=== PATIENT | male | born 1975 | race Caucasian/White ===

== ENCOUNTER 2017-12-27 17:24 | Outpatient (CLI) | payer OTHER ==
[2017-12-27] MEDS ORDERED: GADOBUTROL 10 MMOL/10 ML VIAL ONE (17:43)
[2017-12-27] MEDS ORDERED: GADOBUTROL 10 MMOL/10 ML VIAL IVP ONE (18:16)
--- NOTE | 2017-12-28 14:51 | MRI Report ---
Reason: LOW BACK PAIN Procedure Date: 12/27/2017 Accession Number: [id number] / [id number] Procedure: MRI - Lumbar Spine W/WO CPT Code: FULL RESULT: EXAM: MRI LUMBAR SPINE WITHOUT AND WITH CONTRAST EXAM DATE: 12/27/2017 06:27 PM. CLINICAL HISTORY: Low back pain. Possible infection. COMPARISONS: None. TECHNIQUE: Multiplanar, multisequence T1-weighted and fluid-sensitive sequences of the lumbar spine from T12 to S1 before and after administration of intravenous contrast. Other: None. IV contrast: 10 mL Gadavist. FINDINGS: Neurologic Structures: The conus terminates at L1. The conus medullaris and cauda equina are unremarkable. Alignment: No scoliosis or spondylolisthesis. Bone Marrow: Five [id number] lumbar vertebral bodies are assumed. No fractures. The patient has had an anterior and posterior fusion procedure at L5-S1 with paired posterior rods, bilateral pedicle screws, and intervertebral disk spacer. Disk Levels/Facets: T9-T10: Unremarkable. T10-T11: Anterior endplate spurring is present. T11-T12: Unremarkable. T12-L1: Unremarkable. L1-L2: Anterior endplate spurring is present. Mild disk height loss is present. A mild posterior disk protrusion causes mild spinal canal narrowing. L2-L3: The disk is desiccated with anterior endplate spurring. A mild posterior disk protrusion causes minimal spinal canal and bilateral foraminal narrowing. L3-L4: Foraminal area protrusions cause mild bilateral foraminal narrowing. L4-L5: The disk is desiccated. A mild posterior disk protrusion and mild bilateral facet hypertrophy cause minimal spinal canal and moderate bilateral foraminal narrowing. L5-S1: Unremarkable. Spinal Canal: No enhancing masses within the spinal canal. No epidural abscess. Musculature: Normal. No edema, abnormal enhancement, or fatty atrophy. Other: The visualized retroperitoneum is unremarkable. IMPRESSION: 1. Fusion procedure at L5-S1. 2. Mild spinal canal narrowing at L1-L2 due to disk protrusion. 3. Mild bilateral foraminal narrowing at L3-L4 due to protrusions. 4. Moderate bilateral foraminal narrowing at L4-L5 due to disk and posterior element degenerative changes. Comment: The following findings are so common in adults without low back pain that while we report their presence, they must be interpreted with caution and in the context of the clinical situation. (Reference Viktor et al, Spine 2001) Prevalence of findings in patients without low back pain: Disk degeneration (any evidence): 92% Disk desiccation/T2 signal loss: 83% Disk height loss: 56% Disk bulge: 64% Disk protrusion: 32% Annular tear/high intensity zone: 38% RADIA
== END 2017-12-27 17:25 | disposition home or self-care (01) ==
LOC: DI 17:24
PROVIDERS: ATTEND General Practice
DX: M51.26 Other intervertebral disc displacement, lumbar region (principal); M51.36 Other intervertebral disc degeneration, lumbar region; M48.061 Spinal stenosis, lumbar region without neurogenic claudication; M47.9 Spondylosis, unspecified; Z98.1 Arthrodesis status
CPT/HCPCS: 72158; A9585

== ENCOUNTER 2018-01-12 13:13 | Emergency (ER) | payer OTHER ==
[2018-01-12] MEDS ORDERED: DEXAMETHASONE 10 MG/ML VIAL PO STA (14:15)
--- NOTE | 2018-01-12 14:18 | ED Physician Documentation ---
PD HPI BACK PAIN - Stated complaint Stated Complaint: BACK PX - Chief complaint Chief Complaint: Back Pain - History obtained from History obtained from: Patient - History of Present Illness Timing - onset: How many months ago (2) Timing - duration: Months (2) Timing - details: Abrupt onset, Still present, Waxing and waning Location: Lower, Right Quality: Pain, Spasm, Sharp, Similar to prior episodes Associated symptoms: No: Fever, Weakness, Numbness, Incontinent of urine, Unable to urinate, Hematuria, Incontinent of stool Improves with: Rest, Ice, Position, Meds Worsened by: Movement, Lifting Contributing factors: Lifting, Twisting Similar symptoms before: Diagnosis (lumbar disc disease) Recently seen: Clinic - Additional information Additional information: 42-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 Since that time he has had continued pain. He has not had much relief of his pain with any of the modalities is used he has been on a course of prednisone. He has a referral to orthospine and had an MRI done 2 weeks ago Review of Systems Constitutional: denies: Fever, Chills Eyes: denies: Decreased vision Ears: denies: Ear pain Nose: denies: Congestion Throat: denies: Sore throat Cardiac: denies: Chest pain / pressure, Palpitations Respiratory: denies: Dyspnea, Cough GI: denies: Abdominal Pain, Nausea, Vomiting : denies: Dysuria, Frequency Skin: denies: Rash, Lesions Musculoskeletal: reports: Back pain. denies: Neck pain Neurologic: denies: Generalized weakness, Focal weakness, Numbness PD PAST MEDICAL HISTORY - Past Medical History Past Medical History: Yes Cardiovascular: Hypertension Musculoskeletal: Chronic back pain - Past Surgical History Past Surgical History: Yes HEENT: Other - Present Medications Home Medications: Ambulatory Orders Medication Instructions Recorded Confirmed Cyclobenzaprine [Flexeril] 10 mg PO TID PRN #20 tablet 01/12/18 Hydrocodone/Acetaminophen 1 - 2 each PO Q6H PRN #14 tablet 01/12/18 [Hydrocodon-Acetaminophen 5-325] Losartan/Hydrochlorothiazide 1 ea 01/12/18 [Hyzaar 50-12.5 Tablet] - Allergies Allergies/Adverse Reactions: Allergies Allergy/AdvReac Type Severity Reaction Status Date / Time No Known Drug Allergies Allergy Verified 01/12/18 13:21 - Social History Does the pt smoke?: No Smoking Status: Never smoker Does the pt drink ETOH?: No Does the pt have substance abuse?: No - Immunizations Immunizations are current?: Yes PD ED PE NORMAL - Vitals Vital signs reviewed: Yes (hypertensive ) - General General: Alert and oriented X 3, No acute distress, Well developed/nourished - HEENT HEENT: Atraumatic, PERRL, EOMI - Neck Neck: Supple, no meningeal sign - Respiratory Respiratory: No respiratory distress - Back Back: No CVA TTP, No spinal TTP, Other (There is tenderness to the paraspinous muscles on the upper L spine area especially on the right and no flank tenderness ) - Derm Derm: Normal color, Warm and dry, No rash - Extremities Extremities: No deformity, No edema - Neuro Neuro: Alert and oriented X 3, 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, No motor deficit, No sensory deficit, Normal speech Eye Opening: Spontaneous Motor: Obeys Commands Verbal: Oriented GCS Score: 15 - Psych Psych: Normal mood, Normal affect Results - Vitals Vitals: Vital Signs - 24 hr 01/12/18 13:19 Temperature 36.4 C L Heart Rate 80 Respiratory 18 Rate Blood Pressure 151/109 H O2 Saturation 99 Oxygen O2 Source Room air PD MEDICAL DECISION MAKING - ED course Complexity details: considered differential, d/w patient ED course: 42-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 He is administered dexamethasone 10 mg orally and we will place him on some Flexeril and hydrocodone. He does have follow-up with orthospine. Departure - Departure Disposition: 01 Home, Self Care Clinical Impression: Lumbar strain Qualifiers: Encounter type: initial encounter Qualified Code(s): S39.012A - Strain of muscle, fascia and tendon of lower back, initial encounter Condition: Stable Instructions: ED Low Back Pain Injury Follow-Up: ARNALDO ALLEN III, MD [Primary Care Provider] - Prescriptions: Cyclobenzaprine [Flexeril] 10 mg PO TID PRN #20 tablet PRN Reason: Spasms Hydrocodone/Acetaminophen [Hydrocodon-Acetaminophen 5-325] 1 - 2 each PO Q6H PRN #14 tablet PRN Reason: pain
[2018-01-12 14:27] VITALS: BP 148/98
== END 2018-01-12 14:25 | disposition home or self-care (01) ==
LOC: ED 13:13
DX: S39.012A Strain of muscle, fascia and tendon of lower back, initial encounter (principal); I10 Essential (primary) hypertension
CPT/HCPCS: 99283

== ENCOUNTER 2018-03-09 23:34 | Emergency (ER) | payer OTHER ==
--- NOTE | 2018-03-09 23:56 | ED Physician Documentation ---
PD HPI ALTERED MENTAL STATUS - Stated complaint Stated Complaint: AMS - History obtained from History obtained from: Patient, Family, EMS - History of Present Illness Timing - onset: Today Timing - details: Gradual onset Quality / character: Confused Associated symptoms: No: Fever, Headache, Stiff neck, Dyspnea, Cough, NVD, Urinary sx, General weakness, Focal weakness, Seizure activity, Syncope Contributing factors: New medication Basline status: Alert and oriented X 3, Ambulatory, Independent Treatment SONG PLUGGER: Accucheck (107) Similar symptoms before: Has not had sx before Recently seen: Clinic - Additional information Additional information: BIBA. says patient has been confused all day, much worse this morning. he had been on duloxetine for the past several weeks and was at a maximum dose, was at PMD earlier today and was changed to wellbutrin: took last dose of duloxetine in the morning and first dose of wellbutrin this afternoon. says he was drowsy during the appointment, and she even gave him narcan this evening with no response: she did this because of increased confusion, and he takes oxycodone on a daily basis for chronic pain. he has exhibited twitching for the past several days, worse tonight. medics say that patient has been awake, alert, oriented, but also makes odd statements (something about a squirrel in the ambulance), and on arrival, patient tells me he is here because I dont know, I guess there was some sort of accident. says she controls his pain medication dosing and thus she does not see realistic chance that he took more than as prescribed. Review of Systems Constitutional: reports: Reviewed and negative Eyes: reports: Reviewed and negative Ears: reports: Reviewed and negative Cardiac: reports: Reviewed and negative Respiratory: reports: Reviewed and negative GI: reports: Reviewed and negative : denies: Dysuria, Frequency Neurologic: reports: Confused. denies: Headache PD PAST MEDICAL HISTORY - Past Medical History Cardiovascular: Hypertension Musculoskeletal: Chronic back pain - Past Surgical History Past Surgical History: Yes HEENT: Other - Present Medications Home Medications: Ambulatory Orders Medication Instructions Recorded Confirmed Losartan/Hydrochlorothiazide 50 ea PO DAILY 01/12/18 03/10/18 [Hyzaar 50-12.5 Tablet] Duloxetine HCl [Cymbalta] 60 mg PO BID 03/10/18 03/10/18 LORazepam [Lorazepam] 0.5 - 1 mg PO TID PRN #14 tablet 03/10/18 Oxycodone HCl [Roxicodone] 15 mg PO PRN PRN 03/10/18 03/10/18 Rosuvastatin Calcium [Crestor] 20 mg PO DAILY PM 03/10/18 03/10/18 Tamsulosin HCl [Flomax] 0.4 mg PO BID 03/10/18 03/10/18 amLODIPine [Norvasc] 5 mg PO DAILY PM 03/10/18 03/10/18 buPROPion [Wellbutrin Sr] 150 mg PO DAILY PM 03/10/18 03/10/18 - Allergies Allergies/Adverse Reactions: Allergies Allergy/AdvReac Type Severity Reaction Status Date / Time No Known Drug Allergies Allergy Verified 03/10/18 02:21 - Social History Does the pt smoke?: No Smoking Status: Never smoker Does the pt drink ETOH?: No Does the pt have substance abuse?: No - Immunizations Immunizations are current?: Yes PD ED PE NORMAL - Vitals Vital signs reviewed: Yes - General General: Alert and oriented X 3, No acute distress, Well developed/nourished - HEENT HEENT: PERRL, EOMI, Moist mucous membranes - Neck Neck: Supple, no meningeal sign - Cardiac Cardiac: RRR, No murmur - Respiratory Respiratory: No respiratory distress, Clear bilaterally - Abdomen Abdomen: Soft, Non tender - Derm Derm: Normal color, Warm and dry, No rash - Extremities Extremities: No edema - Neuro Neuro: Alert and oriented X 3, 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 he exhibits occasional, brief twitching movements in arms and legs, but not coordinated, rhythmic, nor sustained) Eye Opening: Spontaneous Motor: Obeys Commands Verbal: Oriented GCS Score: 15 Results - Vitals Vitals: Vital Signs - 24 hr 03/09/18 03/09/18 03/10/18 23:36 23:57 00:48 Temperature 36.9 C Heart Rate 95 100 98 Respiratory 18 18 18 Rate Blood Pressure 142/92 H 142/92 H 127/83 H O2 Saturation 96 92 99 03/10/18 03/10/18 03/10/18 01:29 02:06 02:57 Temperature 36.7 C Heart Rate 93 88 106 H Respiratory 19 18 19 Rate Blood Pressure 135/89 H 133/81 H 122/83 H O2 Saturation 95 94 98 Oxygen O2 Source Room air - Labs Labs: Laboratory Tests 03/10/18 03/10/18 03/10/18 00:42 01:30 01:30 WBC 6.4 RBC 4.10 L Hgb 12.5 L Hct 36.4 L MCV 89.0 MCH 30.5 MCHC 34.3 RDW 13.6 Plt Count 303 MPV 6.2 L Neut # (Auto) 4.3 Lymph # (Auto) 1.2 L Kingfisher # (Auto) 0.7 Eos # (Auto) 0.2 Baso # (Auto) 0.1 Absolute Nucleated RBC 0.00 Nucleated RBC % 0.1 Sodium 138 Potassium 3.6 Chloride 101 Carbon Dioxide 28 Anion Gap 9.0 BUN 17 Creatinine 0.7 Estimated GFR (MDRD) 124 Glucose 136 H Calcium 9.2 Total Bilirubin 0.5 AST 54 H ALT 74 H Alkaline Phosphatase 50 Total Protein 6.7 Albumin 3.8 Globulin 2.9 Albumin/Globulin Ratio 1.3 Lipase 64 H Urine Color YELLOW Urine Clarity CLEAR Urine pH 8.0 H Ur Specific [place] 1.015 Urine Protein NEGATIVE Urine Glucose (UA) NEGATIVE Urine Ketones NEGATIVE Urine Occult Blood NEGATIVE Urine Nitrite NEGATIVE Urine Bilirubin NEGATIVE Urine Urobilinogen 0.2 (NORMAL) Ur Leukocyte Esterase NEGATIVE Ur Microscopic Review NOT INDICATED Urine Culture Comments NOT INDICATED Urine Opiates Screen NEGATIVE Ur Oxycodone Screen POSITIVE H Urine Methadone Screen NEGATIVE Ur Propoxyphene Screen NEGATIVE Ur Barbiturates Screen NEGATIVE Ur Tricyclics Screen NEGATIVE Ur Phencyclidine Scrn NEGATIVE Ur Amphetamine Screen NEGATIVE U Methamphetamines Scrn NEGATIVE U Benzodiazepines Scrn NEGATIVE Urine Cocaine Screen NEGATIVE U Cannabinoids Screen NEGATIVE - Rads (name of study) CT head Radiology: Prelim report reviewed, See rad report PD MEDICAL DECISION MAKING - ED course Complexity details: reviewed results, re-evaluated patient, considered differential, d/w patient, d/w family ED course: unclear etiology for these symptoms, and test results are reassuring. His symptoms gradually improved during ED stay and he was appropriate for discharge home, and patient are comfortable with this plan. He has several elements of serotonin syndrome, which could be explained by the escalating doses of duloxetine and the immediate transition to wellbutrin earlier today (coinciding with worsening of symptoms), but he does not have any autonomic instability, muscle rigidity, nor significant delirium or any fever, and thus can still be treated in outpatient setting at this time. given lorazepam for mild twitching and instructed to stop the wellbutrin and duloxetine and f/u with PMD immediately for reevaluation Departure - Departure Disposition: 01 Home, Self Care Clinical Impression: Altered mental status Condition: Good Instructions: ED Altered Loc, ED Confusion Follow-Up: ЕЛЕНА JUSTIN DO [Primary Care Provider] - (Call to arrange for next available appointment) Prescriptions: LORazepam [Lorazepam] 0.5 - 1 mg PO TID PRN #14 tablet PRN Reason: Agitation Comments: As we discussed, serotonin syndrome could be a possible explanation for these sy mptoms. I recommend discontinuing the wellbutrin until and unless directed by your primary care provider. Contact your primary care provider this morning to arrange for immediate follow-up, and return to the emergency department if worse in any way. Discharge Date/Time: 03/10/18 03:07
[2018-03-10 00:51] LABS: BILIRUBIN,URINE NEGATIVE (NEGATIVE); GLUCOSE, URINE (UA) NEGATIVE (NEGATIVE); KETONES,URINE (UA) NEGATIVE (NEGATIVE); LEUKOCYTE ESTERASE, URINE NEGATIVE (NEGATIVE); MUDS CUTOFF CONCENTRATIONS CUTOFF CONC BELOW:; NITRITE,URINE NEGATIVE (NEGATIVE); OCCULT BLOOD,URINE NEGATIVE (NEGATIVE); PROTEIN,URINE NEGATIVE (NEGATIVE); UROBILINOGEN,URINE 0.2 (NORMAL) E.U./dL (NORMAL)
[2018-03-10 00:56] LABS: CLARITY,URINE CLEAR (CLEAR)
[2018-03-10 01:00] LABS: AMPHETAMINE SCREEN,URINE NEGATIVE (NEGATIVE); BENZODIAZEPINES SCREEN, URINE NEGATIVE (NEGATIVE); COCAINE SCREEN URINE NEGATIVE (NEGATIVE); METHADONE SCREEN, URINE NEGATIVE (NEGATIVE); METHAMPHETAMINES SCREEN, URINE NEGATIVE (NEGATIVE); OPIATE SCREEN, URINE NEGATIVE (NEGATIVE); OXYCODONE SCREEN, URINE POSITIVE (NEGATIVE); PROPOXYPHENE SCREEN, URINE NEGATIVE (NEGATIVE); TRICYCLIC ANTIDEPRESSANT,URINE NEGATIVE (NEGATIVE)
[2018-03-10 01:42] LABS: BASOPHILS # (AUTO) 0.1 10^3/uL (0.0-0.1); BASOPHILS % (AUTO) 0.9 %; EOSINOPHILS # (AUTO) 0.2 10^3/uL (0.0-0.7); EOSINOPHILS % (AUTO) 3.7 %; HGB - HEMOGLOBIN 12.5 g/dL (14.0-18.0); LYMPHOCYTES # (AUTO) 1.2 10^3/uL (1.5-3.5); LYMPHOCYTES % (AUTO) 18.2 %; MEAN CORPUSCULAR HEMOGLOBIN 30.5 pg (27.0-31.0); MEAN CORPUSCULAR HGB CONC 34.3 g/dL (32.0-36.0); MEAN PLATELET VOLUME 6.2 fL (7.4-11.4); MONOCYTES # (AUTO) 0.7 10^3/uL (0.0-1.0); MONOCYTES % (AUTO) 10.4 %; NEUTROPHILS # (AUTO) 4.3 10^3/uL (1.5-6.6); NEUTROPHILS % (AUTO) 66.8 %; PLT - PLATELET COUNT 303 10^3/uL (130-450); RED CELL DISTRIBUTION WIDTH 13.6 % (12.0-15.0); WHITE BLOOD COUNT 6.4 x10^3/uL (4.8-10.8)
--- NOTE | 2018-03-10 01:50 | CT Report ---
Reason: AMS Procedure Date: 03/10/2018 Accession Number: [id number] / [id number] Procedure: CT - Head W/O CPT Code: FULL RESULT: EXAM: CT HEAD EXAM DATE: 03/10/2018 01:22 AM. CLINICAL HISTORY: Altered mental status. COMPARISON: None. TECHNIQUE: Multiaxial CT images were obtained from the foramen magnum to the vertex. Reformats: Sagittal and coronal. IV contrast: None. In accordance with CT protocol optimization, one or more of the following dose reduction techniques were utilized for this exam: automated exposure control, adjustment of mA and/or KV based on patient size, or use of iterative reconstructive technique. FINDINGS: Parenchyma: No intraparenchymal hemorrhage. No evidence of mass, midline shift, or CT findings of infarction. White-white differentiation is distinct. Extraaxial Spaces: Normal for age. No subdural or epidural collections identified. Ventricles: The ventricles are asymmetric in size with the right being larger than the left, likely representing a normal variant for this patient. Sinuses and Orbits: The bilateral hypoplastic maxillary sinuses are completely opacified. The orbits and mastoid sinuses are unremarkable. Bones: No evidence of fracture or calvarial defect. IMPRESSION: No acute intracranial process. RADIA
[2018-03-10 01:51] LABS: ALBUMIN 3.8 g/dL (3.2-5.5); ALBUMIN/GLOBULIN RATIO 1.3 (1.0-2.2); BILIRUBIN,TOTAL 0.5 mg/dL (0.2-1.0); CALCIUM 9.2 mg/dL (8.5-10.3); CREATININE 0.7 mg/dL (0.6-1.2); TOTAL PROTEIN 6.7 g/dL (6.7-8.2)
[2018-03-10] MEDS ORDERED: LORazepam 0.5 MG TABLET PO STA (02:48)
[2018-03-10 02:57] VITALS: BP 122/83
== END 2018-03-10 03:07 | disposition home or self-care (01) ==
LOC: EDUNIT# → ED 23:34
DX: R41.82 Altered mental status, unspecified (principal); R25.3 Fasciculation; I10 Essential (primary) hypertension; G89.29 Other chronic pain
CPT/HCPCS: 36415; 70450; 80053; 80306; 81003; 83690; 85025; 99283; 99285; A9270; 81001; 87086

== ENCOUNTER 2018-03-12 11:28 | Outpatient (CLI) | payer OTHER | END 2018-03-12 11:29 | disposition critical access hospital (66) | LOC: EMS 11:28 | PROVIDERS: ATTEND Surgery | DX: R56.9 Unspecified convulsions (principal) | CPT/HCPCS: A0425; A0427 ==

== ENCOUNTER 2018-03-12 11:45 | Emergency (ER) | payer OTHER ==
[2018-03-12] MEDS ORDERED: LORazepam 2 MG/ML VIAL ONE ×2 (11:48→12:20)
[2018-03-12] MEDS ORDERED: ETOMIDATE 40 MG/20 ML VIAL IVP ONE (11:53)
[2018-03-12] MEDS ORDERED: SUCCINYLCHOLINE 200 MG/10 ML VIAL ONE (11:53)
[2018-03-12] MEDS ORDERED: VECURONIUM 10 MG VIAL IVP STA (12:00)
[2018-03-12] MEDS ORDERED: WATER FOR INJECTION,STERILE 10 ML ONE (12:06)
--- NOTE | 2018-03-12 12:07 | ED Physician Documentation ---
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 42 male pmhx HTN chronic back pain meds hyzaar, ativan, oxycodone, crestor, flomax, norvasc recently started cymbalta and then wellbutrin seen 03/09/17 for AMS and twitching - had labs and CT all neg - dx possible serotonin syndrome due to sx starting after dec cymbalta dose then switching to welbutrin, those meds were dced and he was prescribed ativan this AM found him on the floor beside his bed seizing she gave narcan s change EMS called - FSBS 97, gave versed 5 s resolution, pt has been seizing for upwards of 45 min on arrival states no EtOH and no depression / suicidal tendencies states no recent c/o MEDEIROS neck stiffness or fever Review of Systems Unable to obtain: Unresponsive PD PAST MEDICAL HISTORY - Past Medical History Past Medical History: Yes Cardiovascular: Hypertension Musculoskeletal: Chronic back pain - Past Surgical History Past Surgical History: Yes HEENT: Other - Present Medications Home Medications: Ambulatory Orders Medication Instructions Recorded Confirmed Losartan/Hydrochlorothiazide 50 ea PO DAILY 01/12/18 03/12/18 [Hyzaar 50-12.5 Tablet] LORazepam [Lorazepam] 0.5 - 1 mg PO TID PRN #14 tablet 03/10/18 03/12/18 Oxycodone HCl [Roxicodone] 15 mg PO PRN PRN 03/10/18 03/12/18 Rosuvastatin Calcium [Crestor] 20 mg PO DAILY PM 03/10/18 03/12/18 Tamsulosin HCl [Flomax] 0.4 mg PO BID 03/10/18 03/12/18 amLODIPine [Norvasc] 10 mg PO DAILY PM 03/10/18 03/12/18 buPROPion [Wellbutrin Sr] 150 mg PO DAILY PM 03/10/18 03/12/18 - Allergies Allergies/Adverse Reactions: Allergies Allergy/AdvReac Type Severity Reaction Status Date / Time No Known Drug Allergies Allergy Verified 03/10/18 02:21 - Social History Does the pt smoke?: No Smoking Status: Never smoker Does the pt drink ETOH?: No Does the pt have substance abuse?: No - Immunizations Immunizations are current?: Yes PD ED PE NORMAL - Vitals Vital signs reviewed: Yes (tachy) - General General: Other (in status unresponsive not mainitaing airway) - HEENT HEENT: No: PERRL (L 7 R 5) - Neck Neck: No bony TTP (he is unrepsonsive - will image as he was found down) - Cardiac Cardiac: RRR (tachy) - Respiratory Respiratory: Other (grunting resp) - Abdomen Abdomen: Non tender - Derm Derm: Normal color - Extremities Extremities: No deformity - Neuro Neuro: Other (in status with antonio tonic motor activity, ? some decorticate postu ring) Results - Vitals Vitals: Vital Signs - 24 hr 03/12/18 03/12/18 03/12/18 11:50 12:10 12:43 Temperature 36.5 C Heart Rate 121 H 117 H 111 H Respiratory 21 14 14 Rate Blood Pressure 179/101 H 152/90 H O2 Saturation 99 92 100 03/12/18 03/12/18 03/12/18 12:50 13:09 13:25 Temperature 36.4 C L Heart Rate 107 H 105 H 106 H Respiratory 24 16 Rate Blood Pressure 147/90 H 150/88 H O2 Saturation 98 98 03/12/18 03/12/18 03/12/18 13:31 13:37 13:45 Temperature Heart Rate 106 H 107 H 106 H Respiratory 20 18 14 Rate Blood Pressure 146/92 H 146/80 H 149/94 H O2 Saturation 99 98 98 03/12/18 03/12/18 03/12/18 13:52 13:57 14:20 Temperature Heart Rate 104 H 102 H 98 Respiratory 14 15 14 Rate Blood Pressure 130/79 128/75 116/82 H O2 Saturation 99 99 100 03/12/18 03/12/18 03/12/18 14:27 14:35 14:47 Temperature Heart Rate 99 94 97 Respiratory 16 14 14 Rate Blood Pressure 112/72 114/80 101/67 O2 Saturation 100 100 100 03/12/18 03/12/18 03/12/18 14:52 14:55 15:03 Temperature Heart Rate 93 92 Respiratory 14 14 Rate Blood Pressure 97/64 97/65 93/64 O2 Saturation 100 100 03/12/18 15:08 Temperature Heart Rate Respiratory Rate Blood Pressure 101/73 O2 Saturation Oxygen O2 Source Mechanical ventilator - EKG (time done) 1154 Rate: Rate (enter#) ([id number]) Rhythm: Sinus tachycardia [place]: Normal Intervals: Prolonged QT Ischemia: Non specific changes - Labs Labs: Laboratory Tests 03/12/18 03/12/18 03/12/18 11:51 11:51 11:51 WBC 7.8 RBC 4.56 L Hgb 13.9 L Hct 39.5 L MCV 86.6 MCH 30.4 MCHC 35.1 RDW 13.3 Plt Count 347 MPV 6.0 L Neut # (Auto) 3.7 Lymph # (Auto) 2.7 [place]cl[place] # (Auto) 0.9 Eos # (Auto) 0.4 Baso # (Auto) 0.1 Absolute Nucleated RBC 0.00 Nucleated RBC % 0.0 Bld Gas Analysis Time Sample Site ABG pH ABG pCO2 ABG pO2 ABG HCO3 ABG Total CO2 ABG O2 Saturation ABG Base Excess [place] Test Respiration Rate O2 Delivery Device Vent Mode FiO2 Tidal Volume PEEP Pressure Support Vent Sodium 137 Potassium 3.0 L Chloride 99 L Carbon Dioxide 27 Anion Gap 11.0 BUN 14 Creatinine 0.8 Estimated GFR (MDRD) 107 Glucose 110 H Calcium 8.8 Total Bilirubin 0.9 AST 46 H ALT 69 H Alkaline Phosphatase 48 Total Creatine Kinase Troponin I < 0.04 Total Protein 7.2 Albumin 4.1 Globulin 3.1 Albumin/Globulin Ratio 1.3 Lipase 24 TSH Urine Color Urine Clarity Urine pH Ur Specific [place] Urine Protein Urine Glucose (UA) Urine Ketones Urine Occult Blood Urine Nitrite Urine Bilirubin Urine Urobilinogen Ur Leukocyte Esterase Ur Microscopic Review Urine Culture Comments Salicylates < 6.0 Urine Opiates Screen Ur Oxycodone Screen Urine Methadone Screen Ur Propoxyphene Screen Acetaminophen < 10 L Ur Barbiturates Screen Ur Tricyclics Screen Ur Phencyclidine Scrn Ur Amphetamine Screen U Methamphetamines Scrn U Benzodiazepines Scrn Urine Cocaine Screen U Cannabinoids Screen Ethyl Alcohol < 5.0 03/12/18 03/12/18 03/12/18 11:51 11:51 12:20 WBC RBC Hgb Hct MCV MCH MCHC RDW Plt Count MPV Neut # (Auto) Lymph # (Auto) Mclennan # (Auto) Eos # (Auto) Baso # (Auto) Absolute Nucleated RBC Nucleated RBC % Bld Gas Analysis Time Sample Site ABG pH ABG pCO2 ABG pO2 ABG HCO3 ABG Total CO2 ABG O2 Saturation ABG Base Excess [place] Test Respiration Rate O2 Delivery Device Vent Mode FiO2 Tidal Volume PEEP Pressure Support Vent Sodium Potassium Chloride Carbon Dioxide Anion Gap BUN Creatinine Estimated GFR (MDRD) Glucose Calcium Total Bilirubin AST ALT Alkaline Phosphatase Total Creatine Kinase 170 Troponin I Total Protein Albumin Globulin Albumin/Globulin Ratio Lipase TSH 1.57 Urine Color YELLOW Urine Clarity CLEAR Urine pH 6.0 Ur Specific [place] 1.020 Urine Protein NEGATIVE Urine Glucose (UA) NEGATIVE Urine Ketones NEGATIVE Urine Occult Blood NEGATIVE Urine Nitrite NEGATIVE Urine Bilirubin NEGATIVE Urine Urobilinogen 0.2 (NORMAL) Ur Leukocyte Esterase NEGATIVE Ur Microscopic Review NOT INDICATED Urine Culture Comments NOT INDICATED Salicylates Urine Opiates Screen NEGATIVE Ur Oxycodone Screen POSITIVE H Urine Methadone Screen NEGATIVE Ur Propoxyphene Screen NEGATIVE Acetaminophen Ur Barbiturates Screen NEGATIVE Ur Tricyclics Screen NEGATIVE Ur Phencyclidine Scrn NEGATIVE Ur Amphetamine Screen NEGATIVE U Methamphetamines Scrn NEGATIVE U Benzodiazepines Scrn POSITIVE H Urine Cocaine Screen NEGATIVE U Cannabinoids Screen NEGATIVE Ethyl Alcohol 03/12/18 12:43 WBC RBC Hgb Hct MCV MCH MCHC RDW Plt Count MPV Neut # (Auto) Lymph # (Auto) [place]cl[place]an # (Auto) Eos # (Auto) Baso # (Auto) Absolute Nucleated RBC Nucleated RBC % Bld Gas Analysis Time 1243 Sample Site RIGHT RADIAL ABG pH 7.42 ABG pCO2 40 ABG pO2 129 H ABG HCO3 25.1 ABG Total CO2 26.3 ABG O2 Saturation 98 ABG Base Excess 0.7 [place] Test POSITIVE Respiration Rate 14 O2 Delivery Device VENTILATOR Vent Mode SIMV FiO2 100.00 Tidal Volume 600 PEEP 5 Pressure Support Vent 10 Sodium Potassium Chloride Carbon Dioxide Anion Gap BUN Creatinine Estimated GFR (MDRD) Glucose Calcium Total Bilirubin AST ALT Alkaline Phosphatase Total Creatine Kinase Troponin I Total Protein Albumin Globulin Albumin/Globulin Ratio Lipase TSH Urine Color Urine Clarity Urine pH Ur Specific [place] Urine Protein Urine Glucose (UA) Urine Ketones Urine Occult Blood Urine Nitrite Urine Bilirubin Urine Urobilinogen Ur Leukocyte Esterase Ur Microscopic Review Urine Culture Comments Salicylates Urine Opiates Screen Ur Oxycodone Screen Urine Methadone Screen Ur Propoxyphene Screen Acetaminophen Ur Barbiturates Screen Ur Tricyclics Screen Ur Phencyclidine Scrn Ur Amphetamine Screen U Methamphetamines Scrn U Benzodiazepines Scrn Urine Cocaine Screen U Cannabinoids Screen Ethyl Alcohol - Rads (name of study) [facility] Radiology: See rad report (verbal from telerad: no sig change from 03/10, asymmetrical ventricles considered to be a normal variant as there is no midline shift, rads feels mass unlikely but consider MRI (not available at [facility] on Tuesday)) [facility] Radiology: See rad report (no acute) CXR Radiology: See rad report (ET 3 cm above elisabeth, NG instomach - no infiltrate per my read - per rad read perhilar an dbbibasilar atelectasis vs aspiration - he had note eaten today and no vomti was noted furing uintubation so suspect atectasis) Procedures - Intubation Provider: Emergency physician Medications: Etomidate, Succinylcholine Blade: Todd (4) Tube: Size-enter number (7.5), Cuffed, Marked at teeth-enter cm (23) Route: Oral Confirmation: Direct visualization, Bilateral breath sounds, No abdominal breath sound, End tidal CO2, Pulse ox, Chest xray Complications: No compications PD MEDICAL DECISION MAKING - ED course ED course: pt arrives 1145 in status epilepticus per EMS has been seizing for 45 min + so will est time of onset 11 AM found down beside his bed FSBS 97 BASTER HAND already been given versed 5mg IV by EMS gave 2 of ativan IV no change pt not protecting airway elected to intubate with RSO etomidate and succ followed by vec to allow pt to get through CT - confirmed with direct vis, ETCO2 sats and CXR placed sanchez and NG as well and loaded [id number] mg/kg IV still seizing started propofol push and gtt still sezing added versed gtt too spoke to [place] neuro at 1315 - he rec speak to neuro critical care - agrees with tx and plan so far implemented spoke to neuro critical care doc Dr Rui Harper and he accept pt and req i also give 1 gram keppra approx 1500 seizure activity finally subsiding and 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
[2018-03-12] MEDS ORDERED: PHENYTOIN IV STA (12:08)
[2018-03-12] MEDS ORDERED: SODIUM CHLORIDE 0.9% IV STA (12:08)
[2018-03-12 12:10] LABS: BASOPHILS # (AUTO) 0.1 10^3/uL (0.0-0.1); EOSINOPHILS # (AUTO) 0.4 10^3/uL (0.0-0.7); HGB - HEMOGLOBIN 13.9 g/dL (14.0-18.0); LYMPHOCYTES # (AUTO) 2.7 10^3/uL (1.5-3.5); LYMPHOCYTES % (AUTO) 34.3 %; MEAN CORPUSCULAR HEMOGLOBIN 30.4 pg (27.0-31.0); MEAN CORPUSCULAR HGB CONC 35.1 g/dL (32.0-36.0); MEAN CORPUSCULAR VOLUME 86.6 fL (80.0-94.0); MONOCYTES # (AUTO) 0.9 10^3/uL (0.0-1.0); MONOCYTES % (AUTO) 11.7 %; NEUTROPHILS # (AUTO) 3.7 10^3/uL (1.5-6.6); PLT - PLATELET COUNT 347 10^3/uL (130-450); RED BLOOD COUNT 4.56 10^6/uL (4.70-6.10); RED CELL DISTRIBUTION WIDTH 13.3 % (12.0-15.0); WHITE BLOOD COUNT 7.8 x10^3/uL (4.8-10.8)
[2018-03-12] MEDS ORDERED: SUCCINYLCHOLINE 200 MG/10 ML VIAL IVP STA (12:17)
[2018-03-12] MEDS ORDERED: ETOMIDATE 40 MG/20 ML VIAL IVP STA (12:17)
[2018-03-12] MEDS ORDERED: LORazepam 2 MG/ML VIAL IVP STA ×2 (12:17→13:12)
[2018-03-12 12:22] LABS: ACETAMINOPHEN < 10 ug/mL (10-30); ALBUMIN 4.1 g/dL (3.2-5.5); ALBUMIN/GLOBULIN RATIO 1.3 (1.0-2.2); ALKALINE PHOSPHATASE 48 IU/L (42-121); ALT ALANINE AMINOTRANSFERASE 69 IU/L (10-60); AST ASPARTATE AMINOTRANSFERASE 46 IU/L (10-42); BILIRUBIN,TOTAL 0.9 mg/dL (0.2-1.0); BUN - BLOOD UREA NITROGEN 14 mg/dL (6-20); CALCIUM 8.8 mg/dL (8.5-10.3); CARBON DIOXIDE - CO2 27 mmol/L (21-32); CHLORIDE 99 mmol/L (101-111); CREATININE 0.8 mg/dL (0.6-1.2); GFR - MDRD 107 (>89); GLUCOSE 110 mg/dL (70-100); LIPASE 24 U/L (22-51); SALICYLATE < 6.0 mg/dL; SODIUM 137 mmol/L (135-145); TOTAL PROTEIN 7.2 g/dL (6.7-8.2)
[2018-03-12] MEDS ORDERED: IOVERSOL 320 100 ML VIAL IVP ONE (12:24)
[2018-03-12 12:27] LABS: MUDS CUTOFF CONCENTRATIONS CUTOFF CONC BELOW:
[2018-03-12 12:31] LABS: BILIRUBIN,URINE NEGATIVE (NEGATIVE); GLUCOSE, URINE (UA) NEGATIVE (NEGATIVE); KETONES,URINE (UA) NEGATIVE (NEGATIVE); LEUKOCYTE ESTERASE, URINE NEGATIVE (NEGATIVE); NITRITE,URINE NEGATIVE (NEGATIVE); OCCULT BLOOD,URINE NEGATIVE (NEGATIVE); PROTEIN,URINE NEGATIVE (NEGATIVE); UROBILINOGEN,URINE 0.2 (NORMAL) E.U./dL (NORMAL)
[2018-03-12 12:32] LABS: CLARITY,URINE CLEAR (CLEAR)
[2018-03-12 12:40] LABS: AMPHETAMINE SCREEN,URINE NEGATIVE (NEGATIVE); BENZODIAZEPINES SCREEN, URINE POSITIVE (NEGATIVE); COCAINE SCREEN URINE NEGATIVE (NEGATIVE); METHAMPHETAMINES SCREEN, URINE NEGATIVE (NEGATIVE); OPIATE SCREEN, URINE NEGATIVE (NEGATIVE)
[2018-03-12 12:41] LABS: METHADONE SCREEN, URINE NEGATIVE (NEGATIVE); OXYCODONE SCREEN, URINE POSITIVE (NEGATIVE); PROPOXYPHENE SCREEN, URINE NEGATIVE (NEGATIVE); TRICYCLIC ANTIDEPRESSANT,URINE NEGATIVE (NEGATIVE)
--- NOTE | 2018-03-12 12:49 | CT Report ---
Reason: seizing with unequal pupils Procedure Date: 03/12/2018 Accession Number: [id number] / [id number] Procedure: CT - Head W/O Stroke Protocol CPT Code: FULL RESULT: EXAM: CT HEAD EXAM DATE: 03/12/2018 12:18 PM. CLINICAL HISTORY: Seizing with unequal pupils. COMPARISON: Head without contrast 03/10/2018 1:06 AM. TECHNIQUE: Multiaxial CT images were obtained from the foramen magnum to the vertex. Reformats: Sagittal and coronal. IV contrast: None. In accordance with CT protocol optimization, one or more of the following dose reduction techniques were utilized for this exam: automated exposure control, adjustment of mA and/or KV based on patient size, or use of iterative reconstructive technique. FINDINGS: No CT evidence for new or acute intracranial abnormality. No definite evidence for acute ischemic infarct. No cerebral hemorrhage. No evidence for new focal or geographic region of brain swelling or edema. Stable ventricular asymmetry, the body and frontal horn of the right lateral ventricle are larger than the left. No evidence for hydrocephalus, however. No abnormal enlargement of the temporal horns of the lateral ventricles or third ventricle. The septum pellucidum, as before, is positioned to the left of midline. The basketball scout view shows an endotracheal tube. There is a partially visualized redundantly looping possible enteric tube in the region of the mouth. Grossly clear mastoids. Maxillary sinuses are opacified. Intact calvarium. IMPRESSION: Stable CT appearance of the brain. No evidence for new or acute intracranial abnormality. As before, lateral ventricular asymmetry is of note but significance is uncertain. RADIA The call report notification system was initiated by Dr. Sha Moon at 12:42 hours on 03/12/18. The above findings were discussed with Dr. Nya Simmons by Dr. Sha Moon at 12:48 hours on 03/12/18.
[2018-03-12 12:51] LABS: ABG BASE EXCESS 0.7 mmol/L (-2.0-3.0); ABG HCO3 25.1 mmol/L (22.0-26.0); ABG OXYGEN SATURATION 98 % (94-98); ABG PCO2 40 mmHg (34-45); ABG PH 7.42 (7.35-7.45); ABG PO2 129 mmHg (80-100); ABG TCO2 26.3 MMOL/L (21.0-29.0); ALLEN TEST POSITIVE
--- NOTE | 2018-03-12 13:01 | CT Report ---
Reason: found down Procedure Date: 03/12/2018 Accession Number: [id number] / [id number] Procedure: CT - Cervical Spine W/O CPT Code: FULL RESULT: EXAM: CT CERVICAL SPINE WITHOUT CONTRAST DATE: 03/12/2018 12:34 PM. HISTORY: Acute pain due to trauma. COMPARISONS: HEAD W/O 03/10/2018 1:06 AM. TECHNIQUE: Thin-section axial images were acquired of the cervical spine without contrast. Post-processing: Coronal and sagittal reformats. Other: None. In accordance with CT protocol optimization, one or more of the following dose reduction techniques were utilized for this exam: automated exposure control, adjustment of mA and/or KV based on patient size, or use of iterative reconstructive technique. FINDINGS: Alignment: No scoliosis or spondylolisthesis. Bones: No fracture or bone lesion. Interspace Levels/Facets: There is mild diffuse degenerative disk disease seen throughout the mid aspects of the cervical spine. The bony central canal and neuroforamina demonstrate no significant narrowing. Musculature: Normal. No fatty atrophy. Other: The paravertebral and prevertebral soft tissues are unremarkable. The lung apices are clear. Endotracheal and enteric tube extend into the appropriate lumens. IMPRESSION: No acute findings. RADIA
[2018-03-12] MEDS ORDERED: PROPOFOL 200 MG/20 ML VIAL IVP STA (13:09)
[2018-03-12] MEDS ORDERED: PROPOFOL 1000 MG/100 ML 100 ML IV STA (13:09)
--- NOTE | 2018-03-12 13:11 | XRAY Report ---
Reason: ng tube placement Procedure Date: 03/12/2018 Accession Number: [id number] / [id number] Procedure: XR - Chest 1 View X-Ray CPT Code: 06981 FULL RESULT: EXAM: CHEST RADIOGRAPHY EXAM DATE: 03/12/2018 12:09 PM. CLINICAL HISTORY: Ng tube placement. Found seizing. COMPARISON: None. TECHNIQUE: 1 view. FINDINGS: Lungs/Pleura: Perihilar bibasilar opacities. No pneumothorax. Mediastinum: Heart size upper normal. Mediastinal contour within normal limits. Other: ET tube present with the tip 3.3 cm from the elisabeth. Orogastric tube present with the tip in the proximal stomach. Gaseous distention of the stomach. IMPRESSION: 1. ET tube and orogastric tube, as described. 2. Perihilar and bibasilar opacities, consolidation, atelectasis versus aspiration. RADIA
[2018-03-12] MEDS ORDERED: PROPOFOL 1000 MG/100 ML 100 ML IV ONE ×2 (13:17→15:10)
[2018-03-12] MEDS ORDERED: MIDAZOLAM DRIP 50 MG/100 ML BAG IV SCH (14:00)
[2018-03-12] MEDS ORDERED: levETIRAcetam INJ 1,000 MG in SODIUM CHLORIDE 0.9% 100ML 100 ML IV STA (14:02)
[2018-03-12 15:08] VITALS: BP 101/73
== END 2018-03-12 15:37 | disposition short-term general hospital (02) ==
LOC: EDUNIT# → ED 11:45
DX: G40.901 Epilepsy, unspecified, not intractable, with status epilepticus (principal); R06.89 Other abnormalities of breathing; I45.81 Long QT syndrome; R00.0 Tachycardia, unspecified; I10 Essential (primary) hypertension; M54.9 Dorsalgia, unspecified; G89.29 Other chronic pain
CPT/HCPCS: 31500; 36415; 36600; 51702; 70450; 71045; 72125; 80053; 80306; 80307; 80320; 80329; 81003; 82550; 82803; 83690; 84443; 84484; 85025; 93005; 94770; 96365; 96367; 96368; 96375; 96376; 99291; 99292; J0330; J2060; 81001; 87086; 99285

== ENCOUNTER 2018-04-03 15:50 | Outpatient (CLI) | payer OTHER ==
[2018-04-03 16:14] LABS: BASOPHILS # (AUTO) 0.1 10^3/uL (0.0-0.1); BASOPHILS % (AUTO) 1.3 %; EOSINOPHILS # (AUTO) 0.2 10^3/uL (0.0-0.7); HGB - HEMOGLOBIN 13.2 g/dL (14.0-18.0); LYMPHOCYTES # (AUTO) 1.2 10^3/uL (1.5-3.5); MEAN CORPUSCULAR HEMOGLOBIN 30.7 pg (27.0-31.0); MEAN CORPUSCULAR HGB CONC 33.5 g/dL (32.0-36.0); MEAN CORPUSCULAR VOLUME 91.7 fL (80.0-94.0); MEAN PLATELET VOLUME 6.7 fL (7.4-11.4); MONOCYTES # (AUTO) 0.5 10^3/uL (0.0-1.0); MONOCYTES % (AUTO) 13.8 %; NEUTROPHILS # (AUTO) 1.9 10^3/uL (1.5-6.6); NEUTROPHILS % (AUTO) 48.9 %; PLT - PLATELET COUNT 324 10^3/uL (130-450); RED BLOOD COUNT 4.31 10^6/uL (4.70-6.10); RED CELL DISTRIBUTION WIDTH 14.5 % (12.0-15.0); WHITE BLOOD COUNT 3.9 x10^3/uL (4.8-10.8)
[2018-04-03 16:19] LABS: ALBUMIN 3.8 g/dL (3.2-5.5); ALBUMIN/GLOBULIN RATIO 1.1 (1.0-2.2); ALKALINE PHOSPHATASE 40 IU/L (42-121); ALT ALANINE AMINOTRANSFERASE 54 IU/L (10-60); AST ASPARTATE AMINOTRANSFERASE 47 IU/L (10-42); BILIRUBIN,TOTAL 0.6 mg/dL (0.2-1.0); BUN - BLOOD UREA NITROGEN 20 mg/dL (6-20); CALCIUM 9.1 mg/dL (8.5-10.3); CARBON DIOXIDE - CO2 27 mmol/L (21-32); CHLORIDE 96 mmol/L (101-111); CREATININE 0.8 mg/dL (0.6-1.2); GFR - MDRD 107 (>89); GLUCOSE 174 mg/dL (70-100); SODIUM 134 mmol/L (135-145); TOTAL PROTEIN 7.3 g/dL (6.7-8.2); VALPROIC ACID (DEPAKOTE) 62.6 ug/mL
--- NOTE | 2018-04-03 16:39 | XRAY Report ---
Reason: SHORTNESS OF BREATH Procedure Date: 04/03/2018 Accession Number: [id number] / [id number] Procedure: XR - Chest 2 View X-Ray CPT Code: 09654 FULL RESULT: EXAM: CHEST RADIOGRAPHY. EXAM DATE: 04/03/2018 04:13 PM. CLINICAL HISTORY: Shortness of breath. COMPARISON: Chest AP (VG) 03/15/2018 9:39 AM. TECHNIQUE: 2 views. FINDINGS: Lungs/Pleura: Minor streaky opacities are seen in the left lung base likely due to atelectasis or scarring. There is no consolidation. No effusion is present. There is no vascular congestion or pneumothorax. Mediastinum: Heart and mediastinal contours are unremarkable. Other: None. IMPRESSION: Minor left basilar scarring/atelectasis, otherwise, no acute findings. RADIA
== END 2018-04-03 15:51 | disposition home or self-care (01) ==
LOC: LAB 15:50 → DI 15:51
PROVIDERS: ATTEND Psychiatry & Neurology Neurology
DX: R06.02 Shortness of breath (principal); G40.309 Generalized idiopathic epilepsy and epileptic syndromes, not intractable, without status epilepticus
CPT/HCPCS: 36415; 71046; 80053; 80164; 80299; 82306; 85025

== ENCOUNTER 2018-04-21 08:00 | Outpatient (CLI) | payer OTHER ==
[2018-04-21 10:27] LABS: BASOPHILS # (AUTO) 0.1 10^3/uL (0.0-0.1); BASOPHILS % (AUTO) 1.1 %; EOSINOPHILS # (AUTO) 0.9 10^3/uL (0.0-0.7); EOSINOPHILS % (AUTO) 9.4 %; HGB - HEMOGLOBIN 13.4 g/dL (14.0-18.0); LYMPHOCYTES # (AUTO) 1.8 10^3/uL (1.5-3.5); LYMPHOCYTES % (AUTO) 19.1 %; MEAN CORPUSCULAR HEMOGLOBIN 30.9 pg (27.0-31.0); MEAN CORPUSCULAR HGB CONC 34.8 g/dL (32.0-36.0); MEAN CORPUSCULAR VOLUME 88.8 fL (80.0-94.0); MEAN PLATELET VOLUME 6.7 fL (7.4-11.4); MONOCYTES # (AUTO) 1.1 10^3/uL (0.0-1.0); MONOCYTES % (AUTO) 11.3 %; NEUTROPHILS # (AUTO) 5.6 10^3/uL (1.5-6.6); NEUTROPHILS % (AUTO) 59.1 %; PLT - PLATELET COUNT 244 10^3/uL (130-450); RED BLOOD COUNT 4.34 10^6/uL (4.70-6.10); RED CELL DISTRIBUTION WIDTH 13.9 % (12.0-15.0); WHITE BLOOD COUNT 9.4 x10^3/uL (4.8-10.8)
[2018-04-21 10:35] LABS: ALBUMIN/GLOBULIN RATIO 1.3 (1.0-2.2); BILIRUBIN,TOTAL 0.6 mg/dL (0.2-1.0); CALCIUM 9.4 mg/dL (8.5-10.3); CREATININE 0.9 mg/dL (0.6-1.2)
== END 2018-04-21 23:59 | disposition home or self-care (01) ==
LOC: LAB.R 08:00
PROVIDERS: ATTEND Psychiatry & Neurology Neurology
DX: Z79.899 Other long term (current) drug therapy (principal)
CPT/HCPCS: 80053; 85025

== ENCOUNTER 2018-05-04 09:38 | Outpatient (CLI) | payer OTHER ==
[2018-05-04 12:51] LABS: VALPROIC ACID (DEPAKOTE) 59.5 ug/mL
== END 2018-05-04 23:59 | disposition home or self-care (01) ==
LOC: LAB.R 09:38
PROVIDERS: ATTEND Psychiatry & Neurology Neurology
DX: Z51.81 Encounter for therapeutic drug level monitoring (principal)
CPT/HCPCS: 80164

== ENCOUNTER 2018-05-15 11:01 | Outpatient (CLI) | payer OTHER | END 2018-05-15 11:02 | disposition home or self-care (01) | LOC: DI 11:01 | PROVIDERS: ATTEND Family Medicine | DX: R60.0 Localized edema (principal); I51.7 Cardiomegaly | CPT/HCPCS: 93306 ==

== ENCOUNTER 2018-05-31 08:35 | Outpatient (CLI) | payer OTHER | END 2018-05-31 08:36 | disposition short-term general hospital (02) | LOC: EMS 08:35 | PROVIDERS: ATTEND Surgery | DX: R41.82 Altered mental status, unspecified (principal) | CPT/HCPCS: A0425; A0429 ==

== ENCOUNTER 2018-06-05 14:30 | Outpatient (CLI) | payer OTHER | END 2018-06-05 14:31 | disposition home or self-care (01) | LOC: SC 14:30 | PROVIDERS: ATTEND Internal Medicine Pulmonary Disease | DX: G47.33 Obstructive sleep apnea (adult) (pediatric) (principal) | CPT/HCPCS: 99203; 99212 ==

== ENCOUNTER 2018-06-19 20:38 | Outpatient (CLI) | payer OTHER | END 2018-06-19 20:39 | disposition home or self-care (01) | LOC: SC 20:38 | PROVIDERS: ATTEND Internal Medicine Pulmonary Disease | DX: G47.33 Obstructive sleep apnea (adult) (pediatric) (principal) | CPT/HCPCS: 95811 ==

== ENCOUNTER 2018-07-04 09:38 | Outpatient (CLI) | payer OTHER | END 2018-07-04 09:39 | disposition home or self-care (01) | LOC: SC 09:38 | PROVIDERS: ATTEND Internal Medicine Pulmonary Disease | DX: G47.33 Obstructive sleep apnea (adult) (pediatric) (principal) | CPT/HCPCS: 99212; 99213 ==

== ENCOUNTER 2018-12-26 15:06 | Outpatient (CLI) | payer OTHER ==
--- NOTE | 2018-12-26 16:47 | SLEEP CARE CONSULTATION ---
Information from patient questionnaire entered by Nelida Martini. I have reviewed and concur with the information entered by Nelida Martini. This document represents the service I personally performed and the decisions made by me, Sarah Orozco MD, [facility]. History of Present Illness Previous diagnosis: Extremely Severe, Obstructive Sleep Apnea-Hypopnea Syndrome AHI: 127.7 Reason for CPAP/BiPAP follow up: first compliance (ASVAUTO DEVICE) Equipment obtained from: [facility] Prior sleep studies: Yes HPI additional information: HPI: Mr. Lua returned today for follow up of nasal CPAP therapy. He was diagnosed to have extremely severe obstructive sleep apnea-hypopnea syndrome. The patient a ResMed N30i mask (he also has a [employer]Wear nasal cushion mask). He reports using the device nightly and all through the night. The compliance report shows usage in 87 nights out of the past 90 nights, averaging 7.2 hours a night. He complained of no particular problem with the device such as soreness on the face, dry nose, epistaxis, nasal congestion or headache. He thinks that the pressure of 14 18 cmH2O is comfortable. On the CPAP therapy he notices improvement in his sleep quality, and that he wakes up feeling fresher in the morning and more awake/alert during the day. His notices no snore at all. The average residual AHI is 2.6; and air leak, 14.2 L/min. The 90th percentile pressure is 14.2 cmH2O. CPAP Compliance Data - Data Reviewed with Patient Average duration of nightly device use: 6h 56m Compliance rate %: 80 Current pressure setting (cmH2O): 14-18 Subjective Patient concerns: reports: nasal congestion Current pressure setting perceived as: comfortable Initial [place] Sleepiness Scale score: 15 Current [place] Sleepiness Scale score: 6 Allergies and Home Medications Drug allergies reviewed: Yes Home medication list reviewed: Yes Review of Systems Review of systems same as previous: Yes Physical Exam Weight: 229 lb Nasal exam: positive: erythema Impression and Plan IMPRESSION: 1. Obstructive Sleep Apnea-Hypopnea Syndrome, extremely severe, with the patient doing well on nasal CPAP therapy. He has excellent compliance and significant clinical improvement. The current pressure appears effective and comfortable. Overall, he is very satisfied with treatment and plans to continue with it long- term. No adjustment is necessary today. PLAN: 1. Continue with autoCPAP set at 14 - 18 cmH2O. 2. Try to lose weight 3. Try ResMed P30i nasal pillows. 4. Prescription made for supplies. 5. Return for follow up in a year or earlier if there is any problem. I spent 100% of this 20 minute visit face to face with the patient with greater than 50% of this was spent time counseling the patient and coordination of care.
== END 2018-12-26 15:07 | disposition home or self-care (01) ==
LOC: SC 15:06
PROVIDERS: ATTEND Internal Medicine Pulmonary Disease
DX: G47.33 Obstructive sleep apnea (adult) (pediatric) (principal)
CPT/HCPCS: 99212; 99213

== ENCOUNTER 2019-07-04 15:38 | Outpatient (CLI) | payer OTHER ==
--- NOTE | 2019-07-04 14:01 | SLEEP CARE CONSULTATION ---
Information from patient questionnaire entered by Nelida Martini. I have reviewed and concur with the information entered by Nelida Martini. This document represents the service I personally performed and the decisions made by me, Denise Montana, RN, MSN, [employer]. History of Present Illness Service Date and Time: 07/04/2019 1538 Previous diagnosis: Extremely Severe, Obstructive Sleep Apnea-Hypopnea Syndrome AHI: 127.7 Reason for follow up: six month (re-up meds/scripts) Equipment type: CPAP Equipment obtained from: [facility] (getting supplies as needed) Mask style: Nasal Mask brand: Resmed (N31) Backup mask available: Yes (has old mask body and cushion ) Last cushion change: about a week ago Type of Sleep Study: Polysomnography CPAP Compliance Data - Data Reviewed with Patient Average duration of nightly device use: 6h 50m Compliance rate %: 79 Current pressure setting (cmH2O): 14-18 Average residual AHI: 2.5 (14.3cmH20 = 95th % pressure) Average large leak: 14.9 liters per minute Subjective Missed days of use due to: reports: other (pressure too high when old mask leaking causing pressure range to increase so used old CPAP until new mask. ) Patient concerns: reports: nasal congestion (increased after mowing the lawn), dry mouth, nose, throat, other. denies: aerophagia, mask discomfort, air blowing in eyes, mask leak noise, condensation in mask/hose, epistaxis Observed to snore while using device: No Current pressure setting perceived as: comfortable On therapy, patient: reports: sleeping better, awakening more refreshed, being more awake and alert during the day, more rested overall, other (chronic insomnia - sees PCP / no difference with CPAP / new sleep aid no better). denies: drowsiness while driving Initial [place] Sleepiness Scale score: 15 Physical Exam Height: 5 ft 7 in Impression and Plan 1. Obstructive Sleep Apnea-Hypopnea Syndrome, extremely severe, with good treatment compliance and good apnea control. On CPAP therapy, the patient has better sleep quality and is more rested overall. To reduce mouth opening during sleep with oral dryness, I will order a mask chinstrap. In addition, oral dryness can be reduced by adjusting humidity setting higher or heated hose lower or by adjusting both settings. The use of saline nasal spray to clear nose can be helpful and he has some at home. I also advised him to consider wearing a mask while mowing or using an antihistamine if if no contradictions with current meds. Oral dryness can also be reduced by reducing mask leaks. Patient advised that chronic oral dryness can affect dental health and advised to follow up with dentist. In addition, there are oral dryness products that can be used to reduce dryness such as Biotene products, Dry mouth rinse and Xylomelts. Patient to discuss best option with dentist. Since he is planning on losing weight which can reduce his apnea as well as his CPAP pressure requirements, I will reduce his autoCPAP pressure to [id number]. This will also reduce discomfort from higher pressures noted when mask leak that made him return to his old PAP until a new mask was delivered. Patient's apnea severity and rationale for treatment to reduce apnea, improve sleep quality and reduce hypertension,cardiovascular and cerebrovascular events was reviewed. 2. Chronic insomnia, for years. It appears his main problem is difficulty falling to sleep. Once he is asleep he sleeps well. He has tried several sleep aids in past and new one of [place] was not helpful. Quick review of history is that he just retired. Current bedtime is 5am and wake time is 10am . No naps. With further inquiry he feels insomnia causes are chronic back pain ( fusion in 2005) and things on mind due to half-way and house search. Thus I advised him to first follow up with his primary about back pain . I will also send him 2 weeks of sleep diaries for further evaluation and schedule a follow up in 1-2 months. Until then if he cannot go to sleep he is to leave bedroom and write out concerns as a release and read something relaxing until sleepy enough to lto return to bed to associate the bed with sleep not frustration to go to sleep. * * Changeauto CPAP pressure to 12-16 cmH2O * chinstrap fitting * Notify me if snoring with mask or feeling that the pressure is too much or too little * Attempt to lose weight * Sleep diary * Implement methods to reduce insomnia * Follow up with PCP for further evaluation of chronic back pain disrupting sleep * Call this office if any problems using CPAP * Return for follow up in 1-2 months , or sooner if concerns arise Visit Type: Telehealth Video (to reduce risk of Covid 19 exposure) Video Type: Daz 3d Patient Location: Home Location of Provider: Home Patient agrees and consents to this telehealth visit type: Yes Patient agrees to have their insurance billed: Yes Time Spent with Patient (minutes): 29 Provider Statement: I spent 100% of the Telehealth Video Call with the patient with greater than 50% spent counseling the patient and coordination of care.
== END 2019-07-04 15:39 | disposition home or self-care (01) ==
LOC: SC 15:38
PROVIDERS: ATTEND Nurse Practitioner Family
DX: G47.33 Obstructive sleep apnea (adult) (pediatric) (principal); F51.04 Psychophysiologic insomnia

== ENCOUNTER 2019-09-06 15:02 | Outpatient (CLI) | payer OTHER ==
--- NOTE | 2019-09-06 15:44 | SLEEP CARE CONSULTATION ---
Information from patient questionnaire entered by Nelida Martini. I have reviewed and concur with the information entered by Nelida Martini. This document represents the service I personally performed and the decisions made by me, Denise Montana, RN, MSN, [employer]. History of Present Illness Service Date and Time: 09/06/2019 1502 Previous diagnosis: Extremely Severe, Obstructive Sleep Apnea-Hypopnea Syndrome AHI: 127.7 Reason for follow up: other (6 WEEK with pressure change) Equipment type: CPAP Equipment obtained from: [employer] Mask style: Nasal Mask brand: Resmed Backup mask available: Yes (old mask ) Last cushion change: 6 weeks ago Prior sleep studies: Yes Year and Where: [employer] 2018 Type of Sleep Study: Polysomnography HPI additional information: The chinstrap helped reduce oral dryness. The new pressure is more comfortable and not blowing his mouth open. He completed his sleep diaries - he forgot to bring them He continues to have insomnia but his sleep time is better with general bedtime of 3am and waketime of 10-11am. He sometimes uses an alarm to wake up if has appointment. He uses alarm 3-4 times a week now due to spouse appointments to rule out cancer of her pancreas / liver. She is undergoing multiple studies. Currently he is using Ambien by his PCP more than 50% of time if unable to sleep. CPAP Compliance Data - Data Reviewed with Patient Average duration of nightly device use: 9h 19m Compliance rate %: 93 Current pressure setting (cmH2O): 12-16 Average residual AHI: 5.9 Central apnea: 4.8 Obstructive apnea: 0.3 Hypopnea: 0.3 Average large leak: 9.9 liters per minute Subjective Patient concerns: reports: nasal congestion, dry mouth, nose, throat (almost resolved with adjustment of humdity and heated hose. ). denies: aerophagia, mask discomfort, air blowing in eyes, mask leak noise, condensation in mask/hose Observed to snore while using device: No Current pressure setting perceived as: comfortable On therapy, patient: reports: sleeping better, awakening more refreshed, being more awake and alert during the day, more rested overall. denies: drowsiness while driving Initial [place] Sleepiness Scale score: 15 Current [place] Sleepiness Scale score: 11 Allergies and Home Medications Known drug allergies: No Home medication list reviewed: No (no changes) Review of Systems Review of systems same as previous: Yes Physical Exam Blood Pressure: 140/80 Cuff size: long Heart Rate: 53 O2 Saturation: 98 Height: 5 ft 7 in Weight: 221 lb 12.8 oz Body Mass Index: 34.7 BMI Classification: Obese Impression and Plan 1. Obstructive Sleep Apnea-Hypopnea Syndrome, extremely, with good treatment compliance and slight elevation of residual AHI. On CPAP therapy, the patient has better sleep quality and is more rested overall. The new pressure is more comfortable as he is not waking to air blowing out of his mouth. The chinstrap also has been helpful in keeping mouth closed. The patients pressure will be changed to autoCPAP 13-17 cmH20 For slight elevation of residual AHI. Patient feels he is ready to try a higher pressure now that he has the chinstrap. Patient advised to contact me if pressure change is uncomfortable so that it can be adjusted. Goals for apnea control discussed. His oral dryness is almost resolved completely and he is advised to adjust humidity as needed. He is also advised to lose weight to reduce apnea risk and health risks as his BMI is 34. Patient's apnea severity and rationale for treatment to reduce apnea, improve sleep quality and reduce cardiovascular and cerebrovascular events was reviewed. 2. Insomnia, chronic that generally is due things on mind. Sleep diary was completed but he forgot to bring. He feels he is sleeping better since last visit as shown by CPAP use and sleep schedule. However, he continues to need Ambien about 50% of the time and has used since March, prescribed by PCP. I cautioned not to use oysterman and he agreed and will discuss with his PCP. To assist him to reduce insomnia from things on his mind. He is advised to write out concerns as a release and then engage in quiet activity such as reading something relaxing until sleepy. Currently he uses the TV which can be alerting. He is leave room if unable to fall asleep to do this activity and to repeat as often as necessary. ( this is if no Ambien) to associate the bed with sleep. He is also advised to discuss with his PCP about seeing a counselor for his concerns especially since his spouse is undergoing evaluation for cancer. Patient will consider. We discussed follow up and I advised him he can follow up as needed for insomnia but feel working with a counselor would be best at this time. He is also advised to strive for a regular wake time with rationale discussed to assist sleep efficiency and morning alertness. * * Change auto CPAP pressure to 13-17 cmH2O * Implement methods to reduce insomnia * Follow up with PCP to discuss referral to counselor for insomnia * Notify me if snoring with mask or feeling that the pressure is too much or too little * Attempt to lose weight * Call this office if any problems using CPAP * Return for follow up in 1 year , or sooner if concerns arise Visit Type: In Office Time Spent with Patient (minutes): 35 Provider Statement: I spent 100% of the Face to Face Visit with the patient with greater than 50% spent counseling the patient and coordination of care.
[2019-09-06 16:49] VITALS: BP 140/80
== END 2019-09-06 15:03 | disposition home or self-care (01) ==
LOC: SC 15:02
PROVIDERS: ATTEND Nurse Practitioner Family
DX: G47.33 Obstructive sleep apnea (adult) (pediatric) (principal); G47.00 Insomnia, unspecified; E66.9 Obesity, unspecified; Z68.34 Body mass index [BMI] 34.0-34.9, adult
CPT/HCPCS: 99212; 99214

== ENCOUNTER 2020-08-04 13:16 | Outpatient (CLI) | payer OTHER ==
--- NOTE | 2020-08-04 16:15 | SLEEP CARE CONSULTATION ---
Information from patient questionnaire entered by Jamila Vegas. I have reviewed and concur with the information entered by Jamila Vegas. This document represents the service I personally performed and the decisions made by me, Sarah Orozco MD, [facility]. History of Present Illness Service Date and Time: 08/04/2020 1316 Previous diagnosis: Extremely Severe, Obstructive Sleep Apnea-Hypopnea Syndrome AHI: 127.7 (in 2019) Reason for follow up: other (10 month, issues sleeping) Equipment type: CPAP Equipment obtained from: [employer] Mask style: Nasal Prior sleep studies: Yes Year and Where: 2018 - [facility]; 2011 - in [facility] additional information: HPI: Mr. Lua returned with his today for annual follow up of nasal CPAP therapy. He was diagnosed to have extremely severe obstructive sleep apnea-hypopnea syndrome. The patient a ResMed N30i mask (he also has a Respironics DreamWear nasal cushion mask). He reports using the device nightly and all through the night. The compliance report shows usage in 174 nights out of the past 180 nights, averaging 5.8 hours a night. He complained of insomnia but no particular problem with the device such as soreness on the face, dry nose, epistaxis, nasal congestion or headache. He thinks that the pressure of 12 - 16 cmH2O is comfortable. On the CPAP therapy he notices improvement in his sleep quality, and that he wakes up feeling fresher in the morning and more awake/alert during the day. [place] Sleepiness Scale score is 9. His notices no snore at all. The average residual AHI is 4.6; and air leak, 20 L/min. The 90th percentile pressure is 13.1 cmH2O. He lost a lot of weight last year. He also retired from the [employer]. CPAP Compliance Data - Data Reviewed with Patient Average duration of nightly device use: 5 hr 50 min Compliance rate %: 72 (180 days) Current pressure setting (cmH2O): 12-16 Humidity settin Average residual AHI: 4.5 Subjective Patient concerns: reports: dry mouth, nose, throat Current pressure setting perceived as: comfortable Initial [place] Sleepiness Scale score: 15 (in 2019) Current [place] Sleepiness Scale score: 9 Allergies and Home Medications Drug allergies reviewed: Yes Home medication list reviewed: Yes Review of Systems Review of systems same as previous: Yes Physical Exam Height: 5 ft 7 in Weight: 174 lb Weight change since last visit: -45 Body Mass Index: 27.2 BMI Classification: Overweight Impression and Plan IMPRESSION: 1. Obstructive Sleep Apnea-Hypopnea Syndrome, extremely severe, with the patient doing well on nasal CPAP therapy. He has good compliance and significant clinical improvement. The current pressure appears effective and comfortable. Overall, he is very satisfied with treatment and plans to continue with it long-term. No adjustment is necessary today. The weight loss helps. 2. Insomnia, due to irregular sleep-wake schedule, worsened after he retired from the . Most likely this is because he no longer has to get up to go to work. According to the compliance report, his sleep/wake pattern is very irregular. There are days the slept into the afternoon. He said Ambien quit working so he stopped taking it 2 weeks ago. I advised him to first set an 8- hour window to sleep and not sleep outside of that window. The patient would like 11 pm to 7 am but I told him that it might be too difficult. I recommend staring with something that is more manageable like 2 am to 10 am. He will try that. Then, after a month, he can move both the wakeup time and bedtime earlier by 1 2 hours. PLAN: 1. Continue with autoCPAP set at 12 - 16 cmH2O. 2. Maintain a regular wake up time and spend no more than 8 hours in bed at night. Avoid naps. The patient chose 2 am 10 am for a start. 3. Return for follow up in two months. Follow up with Sleep Care in: 1-2 months Visit Type: In Office Other Participants: Spouse/Significant Other Time Spent with Patient (minutes): 15 Provider Statement: I spent 100% of the Face to Face Visit with the patient with greater than 50% spent counseling the patient and coordination of care.
== END 2020-08-04 13:17 | disposition home or self-care (01) ==
LOC: SC 13:16
PROVIDERS: ATTEND Internal Medicine Pulmonary Disease
DX: G47.33 Obstructive sleep apnea (adult) (pediatric) (principal); G47.00 Insomnia, unspecified; E66.3 Overweight; Z68.27 Body mass index [BMI] 27.0-27.9, adult
CPT/HCPCS: 99212; 99213

== ENCOUNTER 2020-10-06 14:43 | Outpatient (CLI) | payer OTHER ==
--- NOTE | 2020-10-06 16:22 | SLEEP CARE CONSULTATION ---
Information from patient questionnaire entered by Jamila Vegas. I have reviewed and concur with the information entered by Jamila Vegas. This document represents the service I personally performed and the decisions made by me, Sarah Orozco MD, [facility]. History of Present Illness Service Date and Time: 10/06/2020 1443 Previous diagnosis: Extremely Severe, Obstructive Sleep Apnea-Hypopnea Syndrome AHI: 127.7 (in 2019) Reason for follow up: other (2 month) Equipment type: CPAP Equipment obtained from: [employer] Mask style: Nasal Prior sleep studies: Yes Year and Where: 2018 - [facility]; 2011 - in [place] HPI additional information: To minimize the risk of COVID-19 exposure, the patient has requested and consented to this telephone visit. The patient also agrees to having his insurance billed. HPI: Mr. Lua was called with his today for annual follow up of nasal CPAP therapy. He was diagnosed to have extremely severe obstructive sleep apnea-hypopnea syndrome. The patient uses a ResMed N30i mask which he says leak more than his old nasal mask. He reports using the device nightly but not all through the night. The compliance report shows usage in 30 nights out of the past 30 nights, averaging 5.4 hours a night. The > 4 hour compliance rate for the past 30 days is 73%. He complained of insomnia but no particular problem with the device such as soreness on the face, dry nose, epistaxis, nasal congestion or headache. He thinks that the pressure of 12 - 16 cmH2O is comfortable. The average residual AHI is now 7.7 (was 4.6 2 months ago); and ai r leak, 34 (was 20) L/min. The 90th percentile pressure is 12.9 cmH2O. He continues to lose weight. CPAP Compliance Data - Data Reviewed with Patient Average duration of nightly device use: 5 hr 35 min Compliance rate %: 73 (last 30)(62 for 60 days) Current pressure setting (cmH2O): 12-16 Humidity settin Average residual AHI: 7.7 Subjective Initial [place] Sleepiness Scale score: 15 (in 2019) Allergies and Home Medications Drug allergies reviewed: Yes Home medication list reviewed: Yes Review of Systems Review of systems same as previous: Yes Physical Exam Height: 5 ft 7 in Weight: 170 lb Body Mass Index: 26.6 BMI Classification: Overweight Impression and Plan IMPRESSION: 1. Obstructive Sleep Apnea-Hypopnea Syndrome, extremely severe, with the patient continuing to have good compliance. The residual AHI has increased, most likely due to air leak. He will go back to his old nasal mask. I offered to lower the pressure range but he declined. He is willing to have a full night of manual CPAP/BiPAP titration study but we cannot fit him in before he moves to [place] [facility] next month (his previous study was a split night). 2. Insomnia, due to irregular sleep-wake schedule, worsened after he retired from the . Most likely this is because he no longer has to get up to go to work. According to the compliance report, his sleep/wake pattern continues to be irregular. There are days he sleeps into the afternoon. He says that he tried to keep a regular schedule, but unable. I am certain that once he starts working again, the insomnia will resolve. PLAN: 1. Continue with autoCPAP set at 12 - 16 cmH2O. 2. Go to his old nasal mask. If the leak is still high, I will lower his autoCPAP to 10 14 cmH2O. 3. Consider performing a manual CPAP/BiPAP titration study which will also help with mask fitting. 4. Follow up with a sleep physician down in [place] [facility]. Follow up with Sleep Care in: as needed Follow up recommended for: Other (sleep physician in [place]) Visit Type: Telehealth Video Video Type: VSee Patient Location: in his car Other Participants: Spouse/Significant Other Location of Provider: Office Patient agrees and consents to this telehealth visit type: Yes Patient agrees to have their insurance billed: Yes Time Spent with Patient (minutes): 15 Provider Statement: I spent 100% of the Telehealth Video Call with the patient with greater than 50% spent counseling the patient and coordination of care.
== END 2020-10-06 14:44 | disposition home or self-care (01) ==
LOC: SC 14:43
PROVIDERS: ATTEND Internal Medicine Pulmonary Disease
DX: G47.33 Obstructive sleep apnea (adult) (pediatric) (principal); G47.00 Insomnia, unspecified